=== PATIENT | male | born 1965 | race Caucasian/White ===

== ENCOUNTER 2019-03-03 15:45 | Emergency (ER) | payer OTHER, MEDICAID ==
[~2019-03-03] VITALS: Ht 182.9 cm; Wt 92.1 kg
[2019-03-03] MEDS ORDERED: GLUCOPHAGE XR750 MG PO (15:59)
--- NOTE | 2019-03-03 20:26 | EKG ---
[facility] [address] [place], [place] [address] Signed Normal sinus rhythm Normal ECG No previous ECGs available Confirmed by ABE LAYTON MD [id number] on 03/03/2019 8:26:15 PM Electronically Signed By: ABE LAYTON MD 03/03/192025 PATIENT NAME: JOSE LOPEZ Electrocardiogram DATE OF : 67 PHYSICIAN: ABE LAYTON MD REPORT #: [id number] REPORT IS CONFIDENTIAL AND NOT TO BE RELEASED WITHOUT AUTHORIZATION
== END 2019-03-03 20:35 | disposition home or self-care (01) ==
LOC: ED 15:45
DX: R07.81 Pleurodynia (principal); E11.9 Type 2 diabetes mellitus without complications; Z79.84 Long term (current) use of oral hypoglycemic drugs
CPT/HCPCS: 71045; 80053; 84484; 85025; 85379; 93005; 93010; 96374; 99285-25; J1885